=== PATIENT | female | born 1940 | race Caucasian/White ===

== ENCOUNTER → 2023-05-05 15:59 | Outpatient (REF) | payer MEDICARE, OTHER, SELFPAY | LOC: RAD 15:59 | PROVIDERS: ATTENDING PHYSICIAN Student in an Organized Health Care Education/Training Program | DX: M25.551 Pain in right hip (principal); M54.31 Sciatica, right side | CPT/HCPCS: 72110; 73523 ==

== ENCOUNTER → 2023-05-12 15:28 | Outpatient (REF) | payer MEDICARE, OTHER, SELFPAY ==
[2023-05-12 16:41] LABS: Albumin 4.5 g/dl (3.5-5.0); Blood Urea Nitrogen 20 mg/dl (7-17); Calcium 10.1 mg/dl (8.4-10.2); Carbon Dioxide 27 mmol/L (22-30); Chloride 104 mmol/L (98-107); Glucose 88 mg/dl (70-99); Phosphorus 3.9 mg/dl (2.5-4.5); Potassium 3.9 mmol/L (3.5-5.1); Sodium 141 mmol/L (135-145); eGFR 50.17
== END ==
LOC: REG 15:28
PROVIDERS: ATTENDING PHYSICIAN Student in an Organized Health Care Education/Training Program
DX: R79.89 Other specified abnormal findings of blood chemistry (principal)
CPT/HCPCS: 36415; 80069

== ENCOUNTER → 2023-05-27 13:41 | Outpatient (REF) | payer MEDICARE, OTHER, SELFPAY | LOC: RAD 13:41 | PROVIDERS: ATTENDING PHYSICIAN Student in an Organized Health Care Education/Training Program | DX: R07.81 Pleurodynia (principal) | CPT/HCPCS: 74160; Q9967 ==

== ENCOUNTER → 2023-07-10 10:59 | Outpatient (REF) | payer MEDICARE, OTHER, SELFPAY ==
[2023-07-10 12:39] LABS: Albumin 4.4 g/dl (3.5-5.0); Total Bilirubin 1.2 mg/dl (0.2-1.3); Total Protein 7.3 g/dl (6.3-8.2)
[2023-07-10 12:49] LABS: ALT (SGPT) 24 U/L (0-35); AST (SGOT) 26 U/L (14-36); Alkaline Phosphatase 69 U/L (38-126)
[2023-07-10 13:53] LABS: Direct Bilirubin 0.4 mg/dl (0.0-0.4)
== END ==
LOC: REG 10:59
PROVIDERS: ATTENDING PHYSICIAN Nurse Practitioner Family
DX: K76.0 Fatty (change of) liver, not elsewhere classified (principal)
CPT/HCPCS: 36415; 80076

== ENCOUNTER → 2023-08-05 10:12 | Outpatient (REF) | payer MEDICARE, OTHER, SELFPAY | LOC: RAD 10:12 | PROVIDERS: ATTENDING PHYSICIAN Nurse Practitioner Family; FAMILY PHYSICIAN Student in an Organized Health Care Education/Training Program | DX: R10.11 Right upper quadrant pain (principal); R13.19 Other dysphagia | CPT/HCPCS: 74221; 76700 ==

== ENCOUNTER → 2023-09-17 06:29 | Day surgery (SDC) | payer MEDICARE, OTHER, SELFPAY | LOC: GI 06:29 | PROVIDERS: ATTENDING PHYSICIAN Specialist | DX: R13.10 Dysphagia, unspecified (principal); K31.7 Polyp of stomach and duodenum | CPT/HCPCS: 43239; 88305 ==

== ENCOUNTER → 2023-11-17 16:10 | Outpatient (REF) | payer MEDICARE, OTHER, SELFPAY ==
[2023-11-17 18:18] LABS: ALT (SGPT) 24 U/L (0-35); AST (SGOT) 28 U/L (14-36); Albumin 4.6 g/dl (3.5-5.0); Alkaline Phosphatase 63 U/L (38-126); Blood Urea Nitrogen 19 mg/dl (7-17); Calcium 10.2 mg/dl (8.4-10.2); Carbon Dioxide 28 mmol/L (22-30); Chloride 104 mmol/L (98-107); Glucose 98 mg/dl (70-99); HDL Cholesterol 68 mg/dl; LDL Cholesterol, Calculated 128 mg/dl; Potassium 4.3 mmol/L (3.5-5.1); Sodium 144 mmol/L (135-145); Total Bilirubin 1.7 mg/dl (0.2-1.3); Total Cholesterol 227 mg/dl (50-199); Total Protein 7.4 g/dl (6.3-8.2); Triglyceride 155 mg/dl (10-149); Very Low Density Lipoprotein 31 mg/dl (0-30); eGFR 37.56
== END ==
LOC: REG 16:10
PROVIDERS: ATTENDING PHYSICIAN Nuclear Medicine Nuclear Cardiology
DX: I48.0 Paroxysmal atrial fibrillation (principal); I49.3 Ventricular premature depolarization; E78.2 Mixed hyperlipidemia
CPT/HCPCS: 36415; 80053; 80061

== ENCOUNTER → 2023-11-24 11:31 | Outpatient (REF) | payer MEDICARE, OTHER, SELFPAY | LOC: RCS 11:31 | PROVIDERS: ATTENDING PHYSICIAN Nuclear Medicine Nuclear Cardiology; FAMILY PHYSICIAN Student in an Organized Health Care Education/Training Program | DX: I48.0 Paroxysmal atrial fibrillation (principal); I49.3 Ventricular premature depolarization; R53.83 Other fatigue | CPT/HCPCS: 93306 ==

== ENCOUNTER → 2023-11-26 12:08 | Outpatient (REF) | payer MEDICARE, OTHER, SELFPAY ==
[2023-11-26 18:14] LABS: Urine Albumin Trace (Neg - Trace); Urine Bilirubin 1+ (Negative); Urine Character Slightly Cloudy (Clear); Urine Color Yellow; Urine Glucose Negative (Negative); Urine Ketone Negative (Negative); Urine Leukocyte 2+ (Negative); Urine Nitrite Negative (Negative); Urine Occult Blood Negative (Negative); Urine Specific Gravity 1.015 (<1.030); Urine Urobilinogen Negative (Neg - 1+)
[2023-11-26 18:24] LABS: Urine Bacteria Many (Negative); Urine Red Blood Cell 0-2 /HPF (0-2)
== END ==
LOC: CLAB 12:08
DX: N18.32 Chronic kidney disease, stage 3b (principal); R78.81 Bacteremia
CPT/HCPCS: 81003; 81015; 87086

== ENCOUNTER → 2023-12-08 14:46 | Outpatient (REF) | payer MEDICARE, OTHER, SELFPAY ==
[2023-12-08 16:05] LABS: Albumin 4.4 g/dl (3.5-5.0); Blood Urea Nitrogen 30 mg/dl (7-17); Calcium 9.9 mg/dl (8.4-10.2); Carbon Dioxide 27 mmol/L (22-30); Chloride 105 mmol/L (98-107); Glucose 99 mg/dl (70-99); Phosphorus 3.8 mg/dl (2.5-4.5); Potassium 3.9 mmol/L (3.5-5.1); Sodium 143 mmol/L (135-145); eGFR 41.06
== END ==
LOC: REG 14:46
PROVIDERS: FAMILY PHYSICIAN Student in an Organized Health Care Education/Training Program
DX: N18.32 Chronic kidney disease, stage 3b (principal)
CPT/HCPCS: 36415; 80069

== ENCOUNTER 2024-02-05 21:34 | Emergency (ER) | payer MEDICARE, OTHER, SELFPAY ==
[2024-02-05 21:38] VITALS: BP 188/93
[2024-02-05 21:39] VITALS: BP 188/93
[2024-02-05 21:44] VITALS: BMI 26.2
[2024-02-05 22:16] LABS: % Basophils 0.5 % (0-2); % Eosinophils 2.1 % (0-6); % Immature Granulocytes 0.2 % (0-0.5); % Monocytes 9.9 % (1.7-9.3); % Neutrophils 65.3 % (42.2-75.2); Absolute Eosinophils 0.1 10^3/uL (0-0.7); Absolute Lymphocytes 1.4 10^3/uL (1.2-3.4); Absolute Monocytes 0.6 10^3/uL (0.1-0.6); Absolute Neutrophils 4.1 10^3/uL (1.4-6.5); Hematocrit 38.2 % (37.0-47.0); Hemoglobin 12.4 g/dL (12.0-16.0); Mean Corp Hgb Conc. 32.5 g/dL (33.0-37.0); Mean Corpuscular Hgb 30.2 pg (27.0-31.0); Mean Corpuscular Volume 92.9 fL (81.0-99.0); Mean Platelet Volume 10.8 fL (7.4-10.4); Nucleated Red Blood Cells % 0 %; Platelet Count 154 10^3/uL (130-400); Red Blood Cell Count 4.11 10^6/uL (4.20-5.40); Red Cell Dist. Width 14.3 % (11.5-14.5); White Blood Cell Count 6.3 10^3/uL (4.8-10.8)
[2024-02-05 22:36] LABS: ALT (SGPT) 21 U/L (0-35); AST (SGOT) 26 U/L (14-36); Albumin 4.7 g/dl (3.5-5.0); Alkaline Phosphatase 55 U/L (38-126); Blood Urea Nitrogen 24 mg/dl (7-17); Carbon Dioxide 30 mmol/L (22-30); Chloride 103 mmol/L (98-107); Estimated Creatinine Clearance 32 ml/min; Glucose 93 mg/dl (70-99); Potassium 4.4 mmol/L (3.5-5.1); Sodium 137 mmol/L (135-145); Total Bilirubin 1.5 mg/dl (0.2-1.3); Total Protein 7.7 g/dl (6.3-8.2); eGFR 50.17
[2024-02-05] MEDS: TYLENOL 1000 MG PO (23:34)
[2024-02-05 23:36] VITALS: BP 163/75
[2024-02-06] VITALS: BP 161/87
[2024-02-06 01:00] VITALS: BP 163/80
--- NOTE | 2024-02-06 01:26 | ED.GENMED ---
History of Present Illness
General
Chief Complaint: Fall
Source: patient and family
Time Seen by Provider: 02/05/24 22:24
History of Present Illness
History of Present Illness:
83-year-old female who presents after a fall. Patient states she was putting her sock and then when she went to put on her other sock her foot went on to the 9 carpeted floor and she slipped on the hardwood. She fell and injured her left buttocks
and hit her head. She denies loss of consciousness. She states she may have been little dizzy but is not sure if she was dizzy from the fall or something else. No chest pain. No shortness of breath no palpitations. Family member at bedside and
states she did mention to the medics that she was a little bit lightheaded. Certainly no syncope
Past History
Past History
ED Past Medical History: Arrthythmia (Atrial fib), GERD, HTN, Hypercholesterolemia and Other (chronic low back pain, neck pain, Diveritulitis, Hemorrhoids, H-pylori, Ulcer)
ED Past Surgical History: Gynecological (Tubal) and Orthopedic (Multiple back and neck surgeries, Spinal fusion, Cervical disectomy ,Right shoulder surgery, Right foot surgery)
Social History
Tobacco: Former smoker
Alcohol: Occasional
Drug: None
Personal:
Living: alone
Employment: Retired
Family History
Family History: Other (Noncontributory)
Phy Exam
Physical Exam
Physical Exam:
CONSTITUTIONAL Patient alert and oriented to person, place and time. Well-appearing. Vital signs reviewed.
HEAD atraumatic, normocephalic.
EYES eyelids normal to inspection, Extraocular muscles intact, Conjunctiva normal, Sclera normal.
NECK normal range of motion, Trachea midline, no jugular venous distention. No midline tenderness
RESPIRATORY CHEST No respiratory distress noted, Chest expansion equal, Bilateral breath sounds clear.
CARDIOVASCULAR regular rate and rhythm, Heart sounds normal.
ABDOMEN abdomen nontender, Bowel sounds normal. No distention.
BACK normal inspection, no obvious deformities. No midline tender
UPPER EXTREMITY range of motion normal, Motor strength normal, no cyanosis, no edema.
LOWER EXTREMITY range of motion of the knees bilaterally and hips bilaterally normal, Motor strength normal, no cyanosis, no edema. Normal internal and external rotation of the hips.
NEURO Speech normal, No focal motor deficits, [place] coma scale 15, Memory normal, Cranial Nerves intact to screening exam.
SKIN skin warm, dry, and normal in color.
Course
Orders/Labs/Results
Orders:
Orders
02/05/24 22:03
CR Hip - LT w/wo Pel 2-3 Vw* Urgent
Comment:
Reason For Exam: fall
Include a pelvis x-ray?: Yes
02/05/24 22:06
CMP [Comprehensive Metabolic Panel] Urgent
Complete Blood Count/With Diff Urgent
02/05/24 22:23
Morphine Sulfate 2 mg IV NOW STA
02/05/24 22:37
Lumbar Spine, 2 or 3 View [CR Lumbar Spine 2 Or 3 Views] Urgent
Comment:
Reason For Exam: fall
02/05/24 23:13
Acetaminophen [Tylenol] 1,000 mg PO NOW STA
02/06/24 00:09
CT Head W/o Iv Contrast Urgent
Reason For Exam: fall
Abnormal Lab Results
02/05/24
22:06
RBC 4.11 L 10^6/uL
(4.20-5.40)
MCHC 32.5 L g/dL
(33.0-37.0)
MPV 10.8 H fL
(7.4-10.4)
Monocytes % 9.9 H %
(1.7-9.3)
BUN 24 H mg/dl
(7-17)
Creatinine 1.1 H mg/dL
(0.6-1.0)
Total Bilirubin 1.5 H mg/dl
(0.2-1.3)
02/05/24 22:06
02/05/24 22:06
Vital Signs
Initial and Last Documented VS:
Initial Vital Signs
Temp Pulse Resp BP Pulse Ox
98.2 F 62 20 188/93 99
02/05/24 21:38 02/05/24 21:38 02/05/24 21:38 02/05/24 21:38 02/05/24 21:38
Last Documented Vital Signs
Temp Pulse Resp BP Pulse Ox
98.2 F 58 20 163/80 96
02/05/24 21:38 02/05/24 22:15 02/05/24 22:15 02/06/24 01:00 02/06/24 01:30
MDM/Problems Addressed
MDM/Problems Addressed:
Head injury, fall, contusion
*Radiology
Radiology exam reviewed: preliminary read by ED provider (No acute process) and radiology read reviewed
*Pulse Oximetry
Patient hypoxic: no
*Critical Care Note
Total Time (30-74mins, 75-104mins- exclusive of procedures): Not Applicable
Data Reviewed
Source: patient and family
Further Testing Considered But Not Given:
Consider neck CT but patient has no midline tenderness and no neck pain
Patient Management
Escalation/DeEscalation of care consider admission/obs:
CT negative. Patient was able to ambulate without difficulty. No hip fracture noted by films. Okay for discharge
ED Attending Note
-
Portions of this chart may have been created with voice recognition software.� Occasional wrong word or��sound alike� substitutions may have occurred due to the inherent limitations of voice recognition software.
Discharge Plan
Departure
Patient Disposition: Home (Routine Discharge)
Date of Disposition: 02/06/24
Time of Disposition: 01:26
Patient with high blood pressure during this ER visit?: Yes
Discharge Problem:
Fall, Head injury, Contusion
Instructions: Head Injury in Adults (DC), Contusion (DC), BLOOD PRESSURE
Prescriptions:
No Action
pravastatin 10 MG tablet
10 mg PO HS
losartan-hydrochlorothiazide 1 EACH tablet
1 ea PO DAILY
fiber 1 EACH tablet
2 tab PO HS
sertraline 100 MG tablet
100 mg PO DAILY
metoprolol tartrate 50 MG tablet
50 mg PO DAILY
losartan 50 MG tablet
50 mg PO DAILY Qty: 30 0RF
hydrocodone-acetaminophen 1 TABLET tablet
1 tab PO Q4HPRN PRN (Reason: pain) Qty: 10 0RF
oseltamivir 75 MG capsule
75 mg PO BID Qty: 10 0RF
albuterol sulfate [Proventil HFA] 90 MCG/PUFF HFA aerosol inhaler
1 puff inhalation Q4HPRN PRN (Reason: shortness of breath) Qty: 1 0RF
ondansetron 4 MG tablet,disintegrating
4 mg PO TIDPRN PRN (Reason: nausea/vomiting) Qty: 12 0RF
famotidine 20 MG tablet
20 mg PO BID Qty: 28 0RF
Rx Instructions:
Take 20 mg twice a day for 14 days
ascorbic acid (vitamin C) [Vitamin C] 500 MG tablet
1,000 mg PO BID Qty: 56 0RF
Rx Instructions:
Take 1,000 mg twice a day for 14 days
aspirin 81 MG tablet,chewable
81 mg PO DAILY Qty: 14 0RF
Rx Instructions:
Take 81 mg daily for 14 days
zinc sulfate 220 MG capsule
220 mg PO DAILY Qty: 14 0RF
Rx Instructions:
Take 220 mg daily for 14 days
cholecalciferol (vitamin D3) 1,000 UNITS tablet
2,000 units PO DAILY Qty: 28 0RF
Rx Instructions:
Take 2,000 units daily for 14 days
melatonin 5 MG tablet
5 mg PO HS Qty: 14 0RF
Rx Instructions:
Take 5 mg daily at bedtime for 14 days
prednisone 20 MG tablet
20 mg PO BID 5 Days Qty: 10 0RF
cyclobenzaprine 5 MG tablet
5 mg PO HS PRN (Reason: muscle spasm) 5 Days Qty: 10 0RF
diclofenac potassium 50 mg tablet
50 mg PO BID Qty: 14 0RF
diazepam [Valium] 2 mg tablet
2 mg PO BID PRN (Reason: muscle spasm) Qty: 10 0RF
diazepam 2 mg tablet
2 mg PO BID PRN (Reason: muscle spasm) Qty: 10 0RF
prednisone 20 mg tablet
40 mg PO DAILY Qty: 10 0RF
Referrals:
UNKNOWN - PT DOES,NOT KNOW [Family Provider] -
Activity Restrictions/Additional Instructions:
Return immediately for vomiting, changes in mentation, weakness of any kind or any other concerns. Please rest and use Tylenol as needed for pain control
Interventions
Interventions:
*Risk Screen - Suicide Last Done: 02/05/24 21:45
*General Assessment Last Done: 02/05/24 21:45
*Neglect/Abuse Screening Last Done: 02/05/24 21:45
ED- Fall Risk Assessment Last Done: 02/06/24 01:55
*ED COVID-19 Vaccine History Last Done: 02/05/24 21:45
*Nursing Disposition Last Done: 02/06/24 01:55
ED-Musculoskeletal Assessment Last Done: 02/05/24 21:50
ED- Neurological Assessment Last Done: 02/05/24 21:50
ED-Skin Assessment Last Done: 02/05/24 21:50
Discharge Date and Time
Discharge Date/Time: 02/06/24 01:55
Print Language: DIVEHI
== END 2024-02-06 01:55 | disposition home or self-care (01) ==
LOC: EMR 21:34
PROVIDERS: Emergency Medicine; EMERGENCY PHYSICIAN Emergency Medicine
DX: S09.90XA Unspecified injury of head, initial encounter (principal); T14.8XXA Other injury of unspecified body region, initial encounter; R42 Dizziness and giddiness; W01.0XXA Fall on same level from slipping, tripping and stumbling without subsequent striking against object, initial encounter; Y93.89 Activity, other specified; I48.91 Unspecified atrial fibrillation; I10 Essential (primary) hypertension; E78.00 Pure hypercholesterolemia, unspecified; K21.9 Gastro-esophageal reflux disease without esophagitis; K57.92 Diverticulitis of intestine, part unspecified, without perforation or abscess without bleeding; M54.50 Low back pain, unspecified; G89.29 Other chronic pain; Z87.891 Personal history of nicotine dependence; Z98.1 Arthrodesis status
CPT/HCPCS: 99285; 70450; 72100; 73502; 80053; 85025

== ENCOUNTER 2024-05-12 12:31 | Emergency (ER) | payer MEDICARE, OTHER, SELFPAY ==
[2024-05-12 12:32] VITALS: BP 127/85
[2024-05-12 13:08] VITALS: BMI 28.0
--- NOTE | 2024-05-12 13:39 | ED.GENMED ---
History of Present Illness
<Tu Rodriguez PA-C - Last Filed: 05/12/24 15:18>
General
Chief Complaint: Musculo-Skeletal Complaint
Source: patient
Time Seen by Provider: 05/12/24 13:21
History of Present Illness
History of Present Illness:
84-year-old female with past medical history of hypertension, hyperlipidemia, previous atrial fibrillation, GERD presenting to the emergency department for evaluation after she excellently fell 3 days ago while attempting to tack picker her family dog,
fell onto the right hip/buttock area and has had gradually worsening pain since. Patient states the pain is mainly along the lateral aspect of the hip/pelvis, radiates towards the groin and down her right leg. She normally notes that she ambulates
without any assistive devices but has had an increasingly difficult time ambulating since the fall. Patient has not attempted any medications for relief. Denies any head injury, loss consciousness, vomiting, visual changes or any other extremity
related injury.
Past History
<Tu Rodriguez PA-C - Last Filed: 05/12/24 15:18>
Past History
ED Past Medical History: Arrthythmia (Atrial fib), GERD, HTN, Hypercholesterolemia and Other (chronic low back pain, neck pain, Diveritulitis, Hemorrhoids, H-pylori, Ulcer)
ED Past Surgical History: Gynecological (Tubal) and Orthopedic (Multiple back and neck surgeries, Spinal fusion, Cervical disectomy ,Right shoulder surgery, Right foot surgery)
Social History
Tobacco: Former smoker
Alcohol: Occasional
Drug: None
Personal:
Living: alone
Employment: Retired
Family History
Family History: Other (Noncontributory)
Review of Systems
<Tu Rodriguez PA-C - Last Filed: 05/12/24 15:18>
Review of Systems
All Other Systems: ROS reviewed and negative except as documented in HPI and ROS
Phy Exam
<Tu Rodriguez PA-C - Last Filed: 05/12/24 15:18>
Physical Exam
Physical Exam:
GENERAL: Alert , in no apparent distress
EYE: conjunctiva clear
Head: Normocephalic atraumatic
NECK: Supple,
ENT: mmm.
LUNGS: no acute respiratory distress
NEUROLOGICAL: Alert and oriented
SKIN: Warm and dry, skin intact.
MUSCULOSKELETAL: Right lower extremity: There is mild contusion noted to the right lateral with tenderness directly over the lateral femur. Patient has increased pain with forward flexion of the, minimal pain with abduction. Remaining extremity is
without any focal bony tenderness or deformity. Neurovascularly intact.
PSYCH: Normal and appropriate interaction.
Scores
<Tu Rodriguez PA-C - Last Filed: 05/12/24 15:18>
Heart Failure Risk
Heart Failure Risk Score: Not Applicable
Heart Score for Chest Pain Patients
STEMI patient?: Not applicable
Withdrawal Assessment of Alcohol
Withdrawal Assessment Completed?: Not applicable
Course
<Tu Rodriguez PA-C - Last Filed: 05/12/24 15:18>
Orders/Labs/Results
Orders:
Orders
05/12/24 12:36
CR Hip - RT w/wo Pel 2-3 Vw* Urgent
Comment:
Reason For Exam: fall, pain
Include a pelvis x-ray?: Yes
05/12/24 13:34
CT Pelvis W/o Iv Contrast Urgent
Comment:
Reason For Exam: fall, right hip/pelvic pain, LROM
PT Consult [Pt Eval And Treat] Urgent
Activity Level: Ambulate
Vital Signs
Initial and Last Documented VS:
Initial Vital Signs
Temp Pulse Resp BP Pulse Ox
98.4 F 77 18 127/85 98
05/12/24 12:32 05/12/24 12:32 05/12/24 12:32 05/12/24 12:32 05/12/24 12:32
Last Documented Vital Signs
Temp Pulse Resp BP Pulse Ox
98.4 F 77 18 127/85 98
05/12/24 12:32 05/12/24 12:32 05/12/24 12:32 05/12/24 12:32 05/12/24 12:32
<Leah Payne NP - Last Filed: 05/12/24 16:40>
Orders/Labs/Results
Orders:
Orders
05/12/24 12:36
CR Hip - RT w/wo Pel 2-3 Vw* Urgent
Comment:
Reason For Exam: fall, pain
Include a pelvis x-ray?: Yes
05/12/24 13:34
CT Pelvis W/o Iv Contrast Urgent
Comment:
Reason For Exam: fall, right hip/pelvic pain, LROM
PT Consult [Pt Eval And Treat] Urgent
Activity Level: Ambulate
Vital Signs
Initial and Last Documented VS:
Initial Vital Signs
Temp Pulse Resp BP Pulse Ox
98.4 F 77 18 127/85 98
05/12/24 12:32 05/12/24 12:32 05/12/24 12:32 05/12/24 12:32 05/12/24 12:32
Last Documented Vital Signs
Temp Pulse Resp BP Pulse Ox
98.4 F 77 18 127/85 98
05/12/24 12:32 05/12/24 12:32 05/12/24 12:32 05/12/24 12:32 05/12/24 12:32
<Tu Rodriguez PA-C - Last Filed: 05/12/24 15:18>
MDM/Problems Addressed
Differential Diagnosis Includes:
Contusion, fracture, bursitis, tendinitis
MDM/Problems Addressed:
84-year-old female presenting to the emergency department for evaluation of right hip pain started 3 days ago following an accidental fall. Patient has had gradual difficulty ambulating over the last few days since the fall. She does have a good
amount of tenderness over the lateral hip/bursa area. X-ray was ordered from triage which shows degenerative changes. There is no fracture. Due to the amount of pain that patient reports she is and will obtain CT scan to evaluate for further
injury. Patient is declining anything for pain at this time. Physical therapy consultation ordered as well.
<Tu Rodriguez PA-C - Last Filed: 05/12/24 15:18>
*Radiology
Radiology exam reviewed: preliminary read by ED provider (X-ray without acute fracture)
*Pulse Oximetry
Patient hypoxic: no
<Leah Payne NP - Last Filed: 05/12/24 16:40>
*Critical Care Note
Total Time (30-74mins, 75-104mins- exclusive of procedures): Not Applicable
<Leah Payne NP - Last Filed: 05/12/24 16:40>
Update Note
Update Note:
CT report reviewed. No evidence of fracture. PT evaluation completed and patient is able to ambulate safely with her walker. She reports having a walker available to her at home. SHe will be discharged home with son. SHe reports that she feels
safe going home. Her daughter will be coming to stay with her. SHe was given instructions on s/s to return to ED and she is agreeable to plan.
ED Attending Note
<Tu Rodriguez PA-C - Last Filed: 05/12/24 15:18>
-
Portions of this chart may have been created with voice recognition software.� Occasional wrong word or��sound alike� substitutions may have occurred due to the inherent limitations of voice recognition software.
Discharge Plan
Departure
Patient Disposition: Home (Routine Discharge)
Date of Disposition: 05/12/24
Time of Disposition: 16:39
Patient with high blood pressure during this ER visit?: No
Condition: Good
Covid-19: Not Applicable
Discharge Problem:
Hip pain
Instructions: Using Cold for Pain, Hip Pain ED, How to use a walker
Prescriptions:
No Action
pravastatin 10 MG tablet
10 mg PO HS
losartan-hydrochlorothiazide 1 EACH tablet
1 ea PO DAILY
fiber 1 EACH tablet
2 tab PO HS
sertraline 100 MG tablet
100 mg PO DAILY
metoprolol tartrate 50 MG tablet
50 mg PO DAILY
losartan 50 MG tablet
50 mg PO DAILY Qty: 30 0RF
hydrocodone-acetaminophen 1 TABLET tablet
1 tab PO Q4HPRN PRN (Reason: pain) Qty: 10 0RF
oseltamivir 75 MG capsule
75 mg PO BID Qty: 10 0RF
albuterol sulfate [Proventil HFA] 90 MCG/PUFF HFA aerosol inhaler
1 puff inhalation Q4HPRN PRN (Reason: shortness of breath) Qty: 1 0RF
ondansetron 4 MG tablet,disintegrating
4 mg PO TIDPRN PRN (Reason: nausea/vomiting) Qty: 12 0RF
famotidine 20 MG tablet
20 mg PO BID Qty: 28 0RF
Rx Instructions:
Take 20 mg twice a day for 14 days
ascorbic acid (vitamin C) [Vitamin C] 500 MG tablet
1,000 mg PO BID Qty: 56 0RF
Rx Instructions:
Take 1,000 mg twice a day for 14 days
aspirin 81 MG tablet,chewable
81 mg PO DAILY Qty: 14 0RF
Rx Instructions:
Take 81 mg daily for 14 days
zinc sulfate 220 MG capsule
220 mg PO DAILY Qty: 14 0RF
Rx Instructions:
Take 220 mg daily for 14 days
cholecalciferol (vitamin D3) 1,000 UNITS tablet
2,000 units PO DAILY Qty: 28 0RF
Rx Instructions:
Take 2,000 units daily for 14 days
melatonin 5 MG tablet
5 mg PO HS Qty: 14 0RF
Rx Instructions:
Take 5 mg daily at bedtime for 14 days
prednisone 20 MG tablet
20 mg PO BID 5 Days Qty: 10 0RF
cyclobenzaprine 5 MG tablet
5 mg PO HS PRN (Reason: muscle spasm) 5 Days Qty: 10 0RF
diclofenac potassium 50 mg tablet
50 mg PO BID Qty: 14 0RF
diazepam [Valium] 2 mg tablet
2 mg PO BID PRN (Reason: muscle spasm) Qty: 10 0RF
diazepam 2 mg tablet
2 mg PO BID PRN (Reason: muscle spasm) Qty: 10 0RF
prednisone 20 mg tablet
40 mg PO DAILY Qty: 10 0RF
Referrals:
Fannie Ly MD [Family Provider] - Tomorrow
Interventions
Interventions:
*Risk Screen - Suicide Last Done: 05/12/24 12:32
*General Assessment Last Done: 05/12/24 12:32
*ED COVID-19 Vaccine History Last Done: 05/12/24 12:32
ED-Musculoskeletal Assessment Last Done: 05/12/24 13:09
Discharge Date and Time
Print Language: [place]
[2024-05-12 16:38] VITALS: PULSE 69; O2SAT 96
[2024-05-12 17:14] VITALS: BP 130/88
== END 2024-05-12 18:42 | disposition home or self-care (01) ==
LOC: EMR 12:31
PROVIDERS: EMERGENCY PHYSICIAN Student in an Organized Health Care Education/Training Program; FAMILY PHYSICIAN Student in an Organized Health Care Education/Training Program
DX: S70.11XA Contusion of right thigh, initial encounter (principal); W19.XXXA Unspecified fall, initial encounter; M25.551 Pain in right hip; R10.2 Pelvic and perineal pain; E78.00 Pure hypercholesterolemia, unspecified; I10 Essential (primary) hypertension; I48.91 Unspecified atrial fibrillation; Z87.19 Personal history of other diseases of the digestive system; Z87.891 Personal history of nicotine dependence; Z98.1 Arthrodesis status
CPT/HCPCS: 99284; 72192; 73502

== ENCOUNTER 2024-08-12 22:34 | Emergency (ER) | payer MEDICARE, OTHER, SELFPAY ==
[2024-08-12 22:37] VITALS: BP 166/80
[2024-08-12 23:56] LABS: % Basophils 0.5 % (0-2); % Eosinophils 2.5 % (0-6); % Immature Granulocytes 0.3 % (0-0.5); % Lymphocytes 24.8 % (20.5-51.1); % Monocytes 10.1 % (1.7-9.3); % Neutrophils 61.8 % (42.2-75.2); Absolute Eosinophils 0.2 10^3/uL (0-0.7); Absolute Lymphocytes 1.6 10^3/uL (1.2-3.4); Absolute Monocytes 0.7 10^3/uL (0.1-0.6); Hematocrit 35.4 % (37.0-47.0); Hemoglobin 11.6 g/dL (12.0-16.0); Mean Corp Hgb Conc. 32.8 g/dL (33.0-37.0); Mean Corpuscular Hgb 29.7 pg (27.0-31.0); Mean Corpuscular Volume 90.5 fL (81.0-99.0); Mean Platelet Volume 11.4 fL (7.4-10.4); Nucleated Red Blood Cells % 0 %; Platelet Count 154 10^3/uL (130-400); Red Blood Cell Count 3.91 10^6/uL (4.20-5.40); White Blood Cell Count 6.5 10^3/uL (4.8-10.8)
[2024-08-13 00:07] LABS: Erythrocyte Sed Rate 20 mm/hour (0-20)
[2024-08-13 00:19] LABS: ALT (SGPT) 19 U/L (0-35); AST (SGOT) 21 U/L (14-36); Albumin 4.4 g/dl (3.5-5.0); Alkaline Phosphatase 51 U/L (38-126); Blood Urea Nitrogen 36 mg/dl (7-17); Calcium 9.8 mg/dl (8.4-10.2); Carbon Dioxide 27 mmol/L (22-30); Chloride 109 mmol/L (98-107); Glucose 130 mg/dl (70-99); Potassium 4.3 mmol/L (3.5-5.1); Sodium 143 mmol/L (135-145); Total Bilirubin 0.8 mg/dl (0.2-1.3); Total Protein 7.2 g/dl (6.3-8.2); eGFR 37.33
[2024-08-13 00:22] LABS: C-Reactive Protein < 5.00 mg/L (0.0-10.00)
--- NOTE | 2024-08-13 01:28 | ED.GENMED ---
History of Present Illness
General
Chief Complaint: Skin Problem
Source: patient and family
Time Seen by Provider: 08/12/24 23:12
History of Present Illness
History of Present Illness:
Note:
CHIEF COMPLAINT(S)
Dark spots on the right leg.
HISTORY OF PRESENT ILLNESS
The patient is an 84-year-old female who presents with dark, flat, hemorrhagic-appearing lesions on her right leg. She first noticed them yesterday. There are approximately five to seven lesions, with the largest being about 0.75 centimeters in
diameter. These spots are not associated with pain. The patient denies any recent trauma to the affected area and states that she has not noticed similar spots until yesterday. [place] and recalls a history of tick
exposure, including removing a tick from her right chest wall. The patient takes low-dose aspirin but no other blood thinners.
ADDITIONAL HISTORY OBTAINED FROM SOURCES OTHER THAN THE PATIENT
Per family members, the patient has had Lyme disease in the past, which presented with different rashes. They also mentioned she has been in and out of the hospital previously for unrelated issues.
CHRONIC MEDICAL CONDITIONS SIGNIFICANTLY AFFECTING CARE
The patient has a history of degenerative disc disease and hypertension.
SOCIAL DETERMINANTS AFFECTING HEALTH
[place], which may contribute to her exposure to ticks.
MEDICATIONS
Low-dose aspirin.
REVIEW OF SYSTEMS
- Dermatological: Dark, flat, hemorrhagic-appearing lesions on the right leg, approximately five to seven in number, non-tender.
PHYSICAL EXAM
- Skin: Small, less than one centimeter, flat, hemorrhagic-appearing lesions on the right farah, non-tender; small skin abrasion noted to the right lateral chest wall below the right breast where the tick was removed.
- Pulse: Normal dorsal pedal and posterior tibial pulses bilaterally in the lower extremities.
- Abdomen: No rashes noted.
- Back: No rashes noted.
- Other: Awake, alert, and oriented. Nursing notes reviewed and vital signs reviewed.
PLAN
1. Perform laboratory workup including complete blood count, coagulation studies, and Lyme disease testing.
2. Monitor for any changes or worsening of the lesions.
3. Consider dermatology referral if necessary based on lab results and clinical progression.
4. Patient education regarding the potential for advanced dermatologic evaluation if symptoms persist or worsen.
DIFFERENTIAL DIAGNOSIS
The Differential Diagnosis includes, in no particular order and is not limited to:
1. Purpura simplex
2. Drug-induced purpura
3. Vasculitis
4. Pigmented purpura
5. Infection-related vasculitis
6. Trauma-related bruising
7. Thrombocytopenia
8. Henoch-Addy�nlein purpura
9. Contact dermatitis
10. Lyme disease-associated rash
Disposition:
SUMMARY OF ENCOUNTER
The patient is an 84-year-old female presenting with dark, flat lesions on her right leg, noticed since yesterday. The primary concern is to evaluate any underlying serious condition including Lyme disease, given the patients history of tick
exposure. In the emergency department, a clinical workup including lab tests was performed, showing normal complete blood count, normal CRP, and sed rate. The lesions appear localized to the right anterior farah, are flat, and not nodular, reducing
suspicion for polyarteritis nodosa or vasculitis. Considering the lab findings and clinical examination, the decision was to provide outpatient management with close follow-up for potential Lyme disease due to her high-risk background.
DISPOSITION
The patient is to follow up closely with her primary care physician for Lyme disease testing and potentially dermatologic evaluation if symptoms persist or worsen.
INDEPENDENT REVIEW OF LABS AND INTERPRETATION OF TESTS
My independent review of the laboratory tests indicates a normal complete blood count, normal CRP, and normal sed rate. Creatinine is 1.4, consistent with previous baselines where it has fluctuated between 1.1 and 1.4.
ADDITIONAL TESTING AND IMAGING CONSIDERED
Lyme testing was recommended due to the patients history of tick exposure and previous Lyme disease, as well as follow-up with a parts chaser if necessary.
PATIENT EDUCATION AND COUNSELING
The patient and her daughter were educated about the need for outpatient follow-up, particularly regarding Lyme testing due to the high risk associated with living in a wooded area and previous Lyme disease history.
FOLLOW-UP INSTRUCTIONS
The daughter will follow up with the primary care physician if symptoms persist or worsen for potential Lyme disease evaluation and dermatologic assessment if necessary.
MEDICAL DECISION MAKING
Chronic conditions affecting care: degenerative disc disease and hypertension. Differential diagnoses considered included vasculitis and Lyme disease. Labs reviewed included CBC, CRP, and sed rate, which were normal.
PATHOLOGIES TO CONSIDER
Lyme disease due to history and exposure risk.
Question pupura simplex. Otherwise well-appearing
Past History
Past History
ED Past Medical History: Arrthythmia (Atrial fib), GERD, HTN, Hypercholesterolemia and Other (chronic low back pain, neck pain, Diveritulitis, Hemorrhoids, H-pylori, Ulcer)
ED Past Surgical History: Gynecological (Tubal) and Orthopedic (Multiple back and neck surgeries, Spinal fusion, Cervical disectomy ,Right shoulder surgery, Right foot surgery)
Social History
Tobacco: Former smoker
Alcohol: Occasional
Drug: None
Personal:
Living: alone
Employment: Retired
Family History
Family History: Other (Noncontributory)
Phy Exam
Physical Exam
Physical Exam:
.
Course
Orders/Labs/Results
Orders:
Orders
08/12/24 23:50
CRP [C-Reactive Protein] Urgent
Complete Blood Count/With Diff Urgent
Comprehensive Metabolic Panel Urgent
ESR [Erythrocyte Sed Rate] Urgent
Lyme Progressive Urgent
Abnormal Lab Results
08/12/24
23:50
RBC 3.91 L 10^6/uL
(4.20-5.40)
Hgb 11.6 L g/dL
(12.0-16.0)
Hct 35.4 L %
(37.0-47.0)
MCHC 32.8 L g/dL
(33.0-37.0)
RDW 15.0 H %
(11.5-14.5)
MPV 11.4 H fL
(7.4-10.4)
Absolute Monos (auto) 0.7 H 10^3/uL
(0.1-0.6)
Monocytes % 10.1 H %
(1.7-9.3)
Chloride 109 H mmol/L
(98-107)
BUN 36 H mg/dl
(7-17)
Creatinine 1.4 H mg/dL
(0.6-1.0)
Glucose 130 H mg/dl
(70-99)
08/12/24 23:50
08/12/24 23:50
Vital Signs
Initial and Last Documented VS:
Initial Vital Signs
Temp Pulse Resp BP Pulse Ox
97.8 F 63 19 166/80 95
08/12/24 22:37 08/12/24 22:37 08/12/24 22:37 08/12/24 22:37 08/12/24 22:37
Last Documented Vital Signs
Temp Pulse Resp BP Pulse Ox
97.8 F 62 18 137/67 98
08/12/24 22:37 08/13/24 01:32 08/13/24 01:32 08/13/24 01:32 08/13/24 01:32
*Pulse Oximetry
SaO2: 95
Oxygen Mode of Delivery: Room air
Patient hypoxic: no
*Critical Care Note
Total Time (30-74mins, 75-104mins- exclusive of procedures): Not Applicable
ED Attending Note
-
Portions of this chart may have been created with voice recognition software.� Occasional wrong word or��sound alike� substitutions may have occurred due to the inherent limitations of voice recognition software.
Discharge Plan
Departure
Patient Disposition: Home (Routine Discharge)
Date of Disposition: 08/13/24
Time of Disposition: 01:31
Patient with high blood pressure during this ER visit?: Yes
Discharge Problem:
Rash
Instructions: Skin Rash (DC), BLOOD PRESSURE
Prescriptions:
No Action
pravastatin 10 MG tablet
10 mg PO HS
losartan-hydrochlorothiazide 1 EACH tablet
1 ea PO DAILY
fiber 1 EACH tablet
2 tab PO HS
sertraline 100 MG tablet
100 mg PO DAILY
metoprolol tartrate 50 MG tablet
50 mg PO DAILY
losartan 50 MG tablet
50 mg PO DAILY Qty: 30 0RF
hydrocodone-acetaminophen 1 TABLET tablet
1 tab PO Q4HPRN PRN (Reason: pain) Qty: 10 0RF
oseltamivir 75 MG capsule
75 mg PO BID Qty: 10 0RF
albuterol sulfate [Proventil HFA] 90 MCG/PUFF HFA aerosol inhaler
1 puff inhalation Q4HPRN PRN (Reason: shortness of breath) Qty: 1 0RF
ondansetron 4 MG tablet,disintegrating
4 mg PO TIDPRN PRN (Reason: nausea/vomiting) Qty: 12 0RF
famotidine 20 MG tablet
20 mg PO BID Qty: 28 0RF
Rx Instructions:
Take 20 mg twice a day for 14 days
ascorbic acid (vitamin C) [Vitamin C] 500 MG tablet
1,000 mg PO BID Qty: 56 0RF
Rx Instructions:
Take 1,000 mg twice a day for 14 days
aspirin 81 MG tablet,chewable
81 mg PO DAILY Qty: 14 0RF
Rx Instructions:
Take 81 mg daily for 14 days
zinc sulfate 220 MG capsule
220 mg PO DAILY Qty: 14 0RF
Rx Instructions:
Take 220 mg daily for 14 days
cholecalciferol (vitamin D3) 1,000 UNITS tablet
2,000 units PO DAILY Qty: 28 0RF
Rx Instructions:
Take 2,000 units daily for 14 days
melatonin 5 MG tablet
5 mg PO HS Qty: 14 0RF
Rx Instructions:
Take 5 mg daily at bedtime for 14 days
prednisone 20 MG tablet
20 mg PO BID 5 Days Qty: 10 0RF
cyclobenzaprine 5 MG tablet
5 mg PO HS PRN (Reason: muscle spasm) 5 Days Qty: 10 0RF
diclofenac potassium 50 mg tablet
50 mg PO BID Qty: 14 0RF
diazepam [Valium] 2 mg tablet
2 mg PO BID PRN (Reason: muscle spasm) Qty: 10 0RF
diazepam 2 mg tablet
2 mg PO BID PRN (Reason: muscle spasm) Qty: 10 0RF
prednisone 20 mg tablet
40 mg PO DAILY Qty: 10 0RF
Referrals:
Fannie Ly MD [Family Provider, Internal Medicine]
Activity Restrictions/Additional Instructions:
Please see your doctor in the next 3 to 5 days for follow-up and reevaluation. Please consider follow-up with dermatology if symptoms persist or worsen. Lyme testing is pending. Return immediate for worsening rash, fevers, changes in mentation or
any other concerns.
Interventions
Interventions:
*Risk Screen - Suicide Last Done: 08/12/24 22:37
*General Assessment Last Done: 08/13/24 01:50
*Neglect/Abuse Screening Last Done: 08/12/24 22:37
*ED- Fall Risk Assessment Last Done: 08/13/24 01:50
*ED COVID-19 Vaccine History Last Done: 08/13/24 01:50
*Nursing Disposition Last Done: 08/13/24 01:50
ED-Skin Assessment Last Done: 08/12/24 23:58
Discharge Date and Time
Discharge Date/Time: 08/13/24 01:50
Print Language: GRENADIAN
[2024-08-13 01:32] VITALS: BP 137/67
== END 2024-08-13 01:50 | disposition home or self-care (01) ==
LOC: EMR 22:34
PROVIDERS: EMERGENCY PHYSICIAN Emergency Medicine; FAMILY PHYSICIAN Student in an Organized Health Care Education/Training Program
DX: R21 Rash and other nonspecific skin eruption (principal); L98.9 Disorder of the skin and subcutaneous tissue, unspecified; E78.00 Pure hypercholesterolemia, unspecified; G89.29 Other chronic pain; I10 Essential (primary) hypertension; Z79.82 Long term (current) use of aspirin; Z87.891 Personal history of nicotine dependence
CPT/HCPCS: 99283; 80053; 85025; 85652; 86140; 86618